=== PATIENT | female | born 1985 | race African-American/Black ===

== ENCOUNTER 2018-02-17 00:46 | Emergency (ER) | payer OTHER ==
[~2018-02-17] VITALS: Ht 170.2 cm; Wt 81.7 kg
[2018-02-17] MEDS ORDERED: MICROGESTIN1 EAC1 (01:07)
[2018-02-17 01:35] VITALS: BP 124/56
== END 2018-02-17 01:36 | disposition home or self-care (01) ==
LOC: ER 00:46
DX: Z77.21 Contact with and (suspected) exposure to potentially hazardous body fluids (principal)